=== PATIENT | female | born 1995 | race African-American/Black ===

== ENCOUNTER 2017-11-30 02:15 | Emergency (ER) | payer MEDICAID ==
[~2017-11-30] VITALS: Ht 162.6 cm; Wt 171.2 kg
[2017-11-30 02:22] VITALS: BP 116/52
[2017-11-30 02:47] VITALS: BP 116/52
== END 2017-11-30 02:46 | disposition home or self-care (01) ==
LOC: MED 02:15
DX: F41.9 Anxiety disorder, unspecified (principal)
CPT/HCPCS: 99284

== ENCOUNTER 2018-06-29 02:50 | Emergency (ER) | payer MEDICAID ==
[~2018-06-29] VITALS: Ht 162.6 cm; Wt 163.3 kg
[2018-06-29 02:50] VITALS: BP 107/69
--- NOTE | 2018-06-29 02:50 | NUR ---
PATIENT BIB BLS TO ER BED 10.
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
[2018-06-29] MEDS ORDERED: LORazepam 1 MG TAB PO ONE (03:15)
[2018-06-29] MEDS ORDERED: HALOPERIDOL IM 5 MG/ML VIAL IM ONE (03:15)
--- NOTE | 2018-06-29 03:47 | NUR ---
PT ATTEMPTED TO COLLECT URINE, PT MISSED AND WAS UNSUCCESSFUL. WILL ATTEMPT AGAIN
--- NOTE | 2018-06-29 03:59 | NUR ---
[place] URINE SAMPLE COLLECTED FOR UDS, LAB TO ATTEMPT TO PROCESS.
[2018-06-29 04:08] LABS: BARBITURATE, URINE NEGATIVE ng/ml (NEG <=200); BENZODIAZEPINE, URINE NEGATIVE ng/mL (NEG <=200); CANNABINOID, URINE NEGATIVE ng/mL (NEG <=50); COCAINE, URINE NEGATIVE ng/mL (NEG <=300); OPIATE, URINE NEGATIVE ng/mL (NEG <=2000); PHENCYCLIDINE SCREEN,URINE NEGATIVE ng/mL (NEG <=25)
--- NOTE | 2018-06-29 04:51 | NUR ---
PT SLEEPING, CALLED PT'S MOTHER TO [employer]ER PT FOR DISCHARGE, NO ANSWER, LEFT VOICEMAIL TO CALL BACK
[2018-06-29 05:10] VITALS: BP 132/63
--- NOTE | 2018-06-29 05:10 | NUR ---
CALLED PT'S MOTHER, NO ANSWER. PT AOX4, AMBULATORY, PT TO WAIT IN LOBBY. CALLED [employer], BUS PASS PROVIDED
== END 2018-06-29 05:10 | disposition home or self-care (01) ==
LOC: MED 02:50
DX: S02.2XXA Fracture of nasal bones, initial encounter for closed fracture (principal); F20.9 Schizophrenia, unspecified; Z88.6 Allergy status to analgesic agent; Y04.0XXA Assault by unarmed brawl or fight, initial encounter; Y93.89 Activity, other specified; Y92.89 Other specified places as the place of occurrence of the external cause; Y99.8 Other external cause status
CPT/HCPCS: 70160; 80305; 81025; 96372; 99285; J1630

== ENCOUNTER 2020-03-06 05:39 | Emergency (ER) | payer MEDICAID ==
[~2020-03-06] VITALS: Ht 162.6 cm; Wt 163.3 kg
--- NOTE | 2020-03-06 05:39 | NUR ---
PT BIBA BLS TO ER BED 11
[2020-03-06 05:48] VITALS: BP 125/63
--- NOTE | 2020-03-06 05:52 | NUR ---
24F BIBA BLS C/O ABDOMINAL PAIN. PER PT, "UMBILICAL HERNIA". PAIN RADIATES TO RT AND LT QUADRANT OF ABDOMEN. 9/10 ACHING PAIN. ABDOMEN SOFT AND NON TENDER. BOWEL SOUNDS NORMOACTIVE. -N/V/D, -LOC PMHX: HTN, ANXIETY, ADHD, SCHIZOPHRENIA,MDD, ASTHMA ALLX: TYLENOL
--- NOTE | 2020-03-06 05:55 | NUR ---
TONY FAIR AT BEDSIDE.
[2020-03-06] MEDS ORDERED: NACL 0.9% 1,000 ML IV ONE (05:57)
[2020-03-06] MEDS ORDERED: ONDANSETRON 4 MG/2 ML VIAL IVP ONE (06:00)
[2020-03-06] MEDS ORDERED: KETOROLAC 30 MG/ML VIAL IVP ONE (06:00)
[2020-03-06] MEDS ORDERED: ONDANSETRON 4 MG/2 ML VIAL ONE (06:01)
--- NOTE | 2020-03-06 06:20 | NUR ---
PT MEDICATED WITH TORADOL AND ZOFRAN VIA IVP. TOLERATED WELL. NADR
--- NOTE | 2020-03-06 06:25 | NUR ---
PT TAKEN TO CT VIA BED.
[2020-03-06 06:31] LABS: BASOPHILS % (AUTO) 0.4 % (0.0-2.0); EOSINOPHILS # (AUTO) 0.1 K/uL (0-0.4); EOSINOPHILS % (AUTO) 1.2 % (0.0-4.0); HEMOGLOBIN 9.8 g/dL (12.0-16.0); LYMPHOCYTES # (AUTO) 2.5 K/uL (2.5-16.5); LYMPHOCYTES % (AUTO) 31.3 % (20.5-51.1); MEAN CORPUSCULAR HEMOGLOBIN 24 pg (27-31); MEAN CORPUSCULAR HGB CONC 32 g/dL (33-37); MEAN CORPUSCULAR VOLUME 75.3 fL (80-94); MONOCYTES # (AUTO) 0.4 K/uL (0.8-1.0); MONOCYTES % (AUTO) 4.7 % (1.7-9.3); NEUTROPHILS # (AUTO) 4.9 K/uL (1.8-7.7); NEUTROPHILS % (AUTO) 62.4 % (42.2-75.2); PLATELET COUNT (AUTO) 448 K/uL (140-450); RED BLOOD CELL COUNT(AUTO) 4.11 MIL/uL (4.20-5.40); WHITE BLOOD COUNT (AUTO) 7.9 K/uL (4.8-10.8)
--- NOTE | 2020-03-06 06:35 | NUR ---
PT RETURNED FROM CT VIA BED.
[2020-03-06 06:45] LABS: PROTHROMBIN TIME 10.8 secs (10.8-13.4)
[2020-03-06 06:47] LABS: ALBUMIN 3.1 g/dL (3.4-5.0); ANION GAP 10.2 (8-16); CARBON DIOXIDE 28.6 mmol/L (21-32); CREATININE 0.8 mg/dL (0.6-1.3); POTASSIUM 3.8 mmol/L (3.5-5.1); TOTAL BILIRUBIN 0.2 mg/dL (0.0-1.0)
--- NOTE | 2020-03-06 06:54 | NUR ---
PT REPORTS DECREASED PAIN FROM 8/10 TO 5/10 AND TOLERABLE. APPEARS DROWSY AND CALM NO FURTHER NEEDS AT THIS TIME BED LOWEST AND LOCKED, RAILS X 2, HOB ELEVATED
--- NOTE | 2020-03-06 07:07 | NUR ---
CHANGE OF SHIFT REPORTED TO LUL HDEZ.
--- NOTE | 2020-03-06 07:18 | NUR ---
RECEIVED REPORT FROM RAY. HDEZ. TRANSFER OF CARE AT THIS TIME
--- NOTE | 2020-03-06 07:38 | NUR ---
DR ROJAS AT BEDSIDE RE-EVALUATING PT
[2020-03-06 08:00] VITALS: BP 125/63
--- NOTE | 2020-03-06 08:00 | NUR ---
Patient discharged with v/s stable. Written and verbal after care instructions given and explained. Patient verbalized understanding. Ambulatory with steady gait. All questions addressed prior to discharge. Advised to follow up with PMD.
== END 2020-03-06 08:00 | disposition home or self-care (01) ==
LOC: MED 05:39
DX: K43.9 Ventral hernia without obstruction or gangrene (principal); K44.9 Diaphragmatic hernia without obstruction or gangrene; R11.2 Nausea with vomiting, unspecified; J45.909 Unspecified asthma, uncomplicated; F12.90 Cannabis use, unspecified, uncomplicated; Z88.6 Allergy status to analgesic agent
CPT/HCPCS: 36415; 74176; 80053; 81002; 81025; 83690; 85025; 85610; 85730; 96361; 96374; 96375; 99284; J1885; J2405; J7030

== ENCOUNTER 2022-10-18 21:27 | Emergency (ER) | payer MEDICAID ==
[~2022-10-18] VITALS: Ht 162.6 cm; Wt 184.2 kg
[2022-10-18 21:27] VITALS: BP 137/83
--- NOTE | 2022-10-18 21:38 | NUR ---
CAMPBELL SUAREZ FROM HOME. SI PRECAUTIONS IN PLACE.
--- NOTE | 2022-10-18 22:36 | NUR ---
BLOOD DRAWN AND GIVEN SHANTI [employer]
[2022-10-18 22:44] LABS: BASOPHILS % (AUTO) 0.5 % (0.0-2.0); EOSINOPHILS # (AUTO) 0.2 K/uL (0-0.4); EOSINOPHILS % (AUTO) 1.8 % (0.0-4.0); HEMATOCRIT 29.2 % (36-48); HEMOGLOBIN 9.1 g/dL (12.0-16.0); LYMPHOCYTES # (AUTO) 3.9 K/uL (2.5-16.5); LYMPHOCYTES % (AUTO) 46.7 % (20.5-51.1); MEAN CORPUSCULAR HEMOGLOBIN 22 pg (27-31); MEAN CORPUSCULAR HGB CONC 31 g/dL (33-37); MEAN CORPUSCULAR VOLUME 72.3 fL (80-94); MONOCYTES # (AUTO) 0.5 K/uL (0.8-1.0); MONOCYTES % (AUTO) 6.2 % (1.7-9.3); NEUTROPHILS # (AUTO) 3.7 K/uL (1.8-7.7); NEUTROPHILS % (AUTO) 44.8 % (42.2-75.2); PLATELET COUNT (AUTO) 473 K/uL (140-450); RED BLOOD CELL COUNT(AUTO) 4.04 MIL/uL (4.20-5.40); RED CELL DISTRIBUTION WIDTH 18.8 % (11.6-13.7); WHITE BLOOD COUNT (AUTO) 8.3 K/uL (4.8-10.8)
[2022-10-18 23:14] LABS: ALBUMIN 3.3 g/dL (3.4-5.0); ANION GAP 9.6 (8-16); ASPARTATE AMINOTRANSFERASE 23 U/L (15-37); CARBON DIOXIDE 29.4 mmol/L (21-32); CHLORIDE 107 mmol/L (98-107); CREATININE 0.7 mg/dL (0.6-1.3); GFR ARICAN-AMERICAN 130 mL/min (>90); GLUCOSE 85 mg/dL (74-106); SODIUM SERUM 142 mmol/L (136-145); TOTAL BILIRUBIN 0.2 mg/dL (0.0-1.0); UREA NITROGEN, BLOOD 11 mg/dL (7-18)
[2022-10-18 23:18] LABS: ACETAMINOPHEN < 0.5 ug/ml (10-30); SALICYLATE < 2.8 mg/dL (2.8-20.0)
--- NOTE | 2022-10-18 23:21 | NUR ---
COVID SWABS AND URINE COLLECTED AND SENT TO LAB
[2022-10-18 23:33] LABS: APPEARANCE,URINE HAZY (CLEAR); BILIRUBIN,URINE 1+ (NEGATIVE); BLOOD, URINE 3+ (NEGATIVE); COLOR,URINE YELLOW (YELLOW); LEUKOCYTE ESTERASE ,URINE NEGATIVE (NEGATIVE); NITRITE, URINE POSITIVE (NEGATIVE); PH,URINE 6.5 (5.0-9.0); UGLUCOSE NEGATIVE (NEGATIVE)
[2022-10-18 23:42] LABS: BARBITURATE, URINE NEGATIVE ng/ml (NEG <=200); BENZODIAZEPINE, URINE NEGATIVE ng/mL (NEG <=200); CANNABINOID, URINE NEGATIVE ng/mL (NEG <=50); COCAINE, URINE NEGATIVE ng/mL (NEG <=300); OPIATE, URINE POSITIVE ng/mL (NEG <=2000); PHENCYCLIDINE SCREEN,URINE NEGATIVE ng/mL (NEG <=25)
[2022-10-18 23:44] LABS: RBC,URINE 0-5 /HPF (0-5); URINE AMORPHOUS URATE 2+ /HPF (None Seen); WBC,URINE 0-5 /HPF (0-5)
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
--- NOTE | 2022-10-19 00:34 | NUR ---
PT IS NOT ON A 5150 HOLD.
[2022-10-19] MEDS ORDERED: NITROFURANTOIN 100 MG CAP PO STA (01:19)
--- NOTE | 2022-10-19 03:26 | NUR ---
PT RESTING WITH HOB ELEVATED. RESP EVEN AND UNLABORED. PT WILL BE TELEPYSCH IN AM
--- NOTE | 2022-10-19 05:37 | NUR ---
DR. HAMM ON TELESCH WITH PT AT THIS TIME
--- NOTE | 2022-10-19 06:11 | NUR ---
Dr. Cooper on phone with ER MD Mcmahan pt placed on . PD will be notified
--- NOTE | 2022-10-19 07:22 | NUR ---
[place] PD HERE 5150 ON PT
--- NOTE | 2022-10-19 07:25 | NUR ---
Report recieved from CAROLINE Gore for transfer of care.
--- NOTE | 2022-10-19 08:38 | NUR ---
Patient is laying in bed, respirations even and unlabored. All needs met by staff.
--- NOTE | 2022-10-19 09:24 | NUR ---
Packet faxed to: [facility]Hortencia Duenas
--- NOTE | 2022-10-19 09:44 | NUR ---
Spoke to Gregory @ [facility] to update clinical information on patient.
--- NOTE | 2022-10-19 09:58 | NUR ---
Spoke to Ravi Blas and was informed patient will not be accepted at their facility.
--- NOTE | 2022-10-19 11:46 | NUR ---
Patient ambulated to restroom with steady gait.
--- NOTE | 2022-10-19 11:51 | NUR ---
Patient was offered a snack
--- NOTE | 2022-10-19 12:00 | NUR ---
Patient was offered lunch tray.
--- NOTE | 2022-10-19 14:26 | NUR ---
Patient is laying in bed, respirations even and unlabored. All needs met by staff.
--- NOTE | 2022-10-19 17:19 | NUR ---
Spoke to Kirt [facility] to give report for transfer. Wants a call back once we have ETA for patient. Call back number [phone] and [phone].
--- NOTE | 2022-10-19 18:35 | NUR ---
Patient to be transferred to [facility]. Is being transferred due to Higher Level of Care. Receiving facility has accepting physician and available space. ER physician has signed transfer form. Patient or responsible republican has agreed to transfer and signed form. Patient belongings inventoried and will be sent with patient. Copy of nursing notes, lab reports, EKG, Physicians Orders and X-rays to be sent with patient. Report called to Kirt at receiving facility. [facility] ambulance service has been called for transfer. ETA is now.
--- NOTE | 2022-10-19 18:36 | NUR ---
Hilton palma in [facility] - 10/19/22 at 1837 by MICHELLE X-Ray at bedside.
[2022-10-19 18:38] VITALS: BP 127/73
--- NOTE | 2022-10-19 18:38 | NUR ---
[facility] at bedside.
== END 2022-10-19 18:38 ==
LOC: MED 21:27
DX: R45.851 Suicidal ideations (principal); Z20.822 Contact with and (suspected) exposure to COVID-19; N39.0 Urinary tract infection, site not specified; R11.0 Nausea; J45.909 Unspecified asthma, uncomplicated; F20.9 Schizophrenia, unspecified; Z88.6 Allergy status to analgesic agent
CPT/HCPCS: 36415; 80053; 80305; 81001; 81025; 85025; 87086; 87426; 87635; 93005; 99285; C9803; G0480; G0482